=== PATIENT | male | born 1965 | race Caucasian/White ===

== ENCOUNTER 2022-02-10 09:03 | Outpatient (CLI) | payer MEDICAID, OTHER | END 2022-02-10 09:04 | disposition short-term general hospital (02) | LOC: EMS 09:03 | DX: R53.1 Weakness (principal); I95.1 Orthostatic hypotension; R19.5 Other fecal abnormalities; R46.4 Slowness and poor responsiveness | CPT/HCPCS: A0425; A0427; A0999 ==

== ENCOUNTER 2022-05-11 09:57 | Outpatient (CLI) | payer MEDICAID ==
[2022-05-11 15:20] LABS: HCT - HEMATOCRIT 32.2 % (42.0-52.0); HGB - HEMOGLOBIN 8.9 g/dL (14.0-18.0); MEAN CORPUSCULAR HEMOGLOBIN 21.2 pg (27.0-31.0); MEAN CORPUSCULAR HGB CONC 27.6 g/dL (32.0-36.0); MEAN CORPUSCULAR VOLUME 76.7 fL (80.0-94.0); MEAN PLATELET VOLUME 10.8 fL (7.4-11.4); RED BLOOD COUNT 4.2 10^6/uL (4.70-6.10); RED CELL DISTRIBUTION WIDTH 19.5 % (12.0-15.0); WHITE BLOOD COUNT 3.1 x10^3/uL (4.8-10.8)
[2022-05-11 15:21] LABS: ALBUMIN 3.3 g/dL (3.2-5.5); ALBUMIN/GLOBULIN RATIO 0.8 (1.0-2.2); BILIRUBIN,TOTAL 0.9 mg/dL (0.2-1.0); CREATININE 0.7 mg/dL (0.6-1.2); POTASSIUM 4.1 mmol/L (3.5-5.0); TOTAL PROTEIN 7.7 g/dL (6.7-8.2)
== END 2022-05-11 09:58 | disposition home or self-care (01) ==
LOC: LAB.S 09:57
PROVIDERS: ATTEND Family Medicine
DX: K70.30 Alcoholic cirrhosis of liver without ascites (principal)
CPT/HCPCS: 36415; 80053; 82728; 85027

== ENCOUNTER 2022-05-27 06:54 | Outpatient (CLI) | payer MEDICAID ==
--- NOTE | 2022-05-27 11:22 | Ultrasound Report ---
PROCEDURE: Abdomen Complete INDICATIONS: ALCOHOLIC CIRRHOSIS TECHNIQUE: Real-time scanning was performed of the abdominal and retroperitoneal organs, with image documentatio n. COMPARISON: None. FINDINGS: Liver: Liver is normal in size at 15.4 cm. Mild nodularity of the liver surface is consistent with c irrhosis. Hepatic echotexture is coarsened and mildly hyperechoic. Main portal vein measures 11 mm in diameter with hepatopetal flow. Gallbladder: The gallbladder appears normal without gallstones or gallbladder wall thickening. There is no pericholecystic fluid. Sonographic Cobb sign is negative. Biliary ducts: Intrahepatic bile ducts are non-dilated. Extrahepatic bile duct caliber measures 5.7 mm. Normal is 6-7 mm or less in diameter, or 10 mm or less post-cholecystectomy. Pancreas: Visualized portions of the pancreas are sonographically normal. Spleen: Spleen is enlarged, measuring 16 x 15.6 x 5.8 cm (1093 cc). Kidneys: Kidneys are normal in size and echotexture. Right kidney measures 11.5 cm long; left kidne y measures 11.5 cm long. No hydronephrosis or nephrolithiasis. No solid masses. Aorta: Visualized aorta is normal in caliber at less than 3 cm. Iliacs: Proximal common iliac arteries are normal in caliber at less than 2.5 cm. IVC: Intrahepatic inferior vena cava is patent. Miscellaneous: No free abdominal fluid. IMPRESSION: 1.Nodular liver surface is consistent with cirrhosis. No suspicious hepatic mass. Hepatopetal flow se en in the portal vein. 2.Moderate splenomegaly. Reviewed by: Kin Salcido MD on 05/27/2022 11:20 AM [facility] Approved by: Kin Salcido MD on 05/27/2022 11:20 AM [facility] Station ID: [id number]
== END 2022-05-27 06:55 | disposition home or self-care (01) ==
LOC: DI 06:54
PROVIDERS: ATTEND Internal Medicine Gastroenterology
DX: K70.30 Alcoholic cirrhosis of liver without ascites (principal); R16.1 Splenomegaly, not elsewhere classified

== ENCOUNTER 2023-01-17 12:47 | Outpatient (CLI) | payer OTHER | END 2023-01-17 23:59 | disposition critical access hospital (66) | LOC: EMS 12:47 | DX: K92.0 Hematemesis (principal); R19.7 Diarrhea, unspecified; R53.1 Weakness | CPT/HCPCS: A0425; A0427 ==

== ENCOUNTER 2023-01-17 13:25 | Emergency (ER) | payer MEDICAID, OTHER ==
[2023-01-17] MEDS ORDERED: OCTREOTIDE 500 MCG in SODIUM CHLORIDE 0.9% 100ML 95 ML IV STA (13:34)
[2023-01-17] MEDS ORDERED: OCTREOTIDE 100 MCG/ML VIAL IVP STA (13:34)
[2023-01-17] MEDS ORDERED: PANTOPRAZOLE 40 MG VIAL IVP STA (13:34)
[2023-01-17] MEDS ORDERED: cefTRIAXone 1 GM VIAL IVP STA (13:36)
[2023-01-17] MEDS ORDERED: SODIUM CHLORIDE 0.9% 1,000 ML IV STA ×2 (13:37)
--- NOTE | 2023-01-17 13:40 | ED Physician Documentation ---
History of Present Illness - Stated complaint Stated Complaint: N/V - History obtained from History obtained from: Patient, EMS - History of Present Illness Timing: How many days ago (2) Pain level max: 0 Pain level now: 0 - Additonal information Additional information: Patient is a 57-year-old male with a longstanding history of alcoholic cirrhosis. He presents to the emergency department with dark brown/black emesis for the past 2 days. Dark tarry stools as well. He was picked up by EMS in [place], his doctors are at [facility] in [place] including his GI doctor. [facility] last endoscopy was about a year ago. [facility] has a history of varices. EMS drove the patient here. Patient remained tachycardic on route with EMS, but did not have any active vomiting with them. No fevers. No chills. No rhinorrhea or congestion. Patient states he drinks "5-6 beers per day". Review of Systems Constitutional: denies: Fever, Chills Respiratory: denies: Cough GI: denies: Abdominal Pain : denies: Dysuria, Frequency, Hesitancy Skin: denies: Rash PD PAST MEDICAL HISTORY - Past Medical History Past Medical History: Yes GI: Esophageal varices, Other (alcoholic cirrhosis) - Past Surgical History Past Surgical History: No - Allergies Allergies/Adverse Reactions: Allergies Allergy/AdvReac Type Severity Reaction Status Date / Time No Known Drug Allergies Allergy Verified 01/17/23 13:39 - Living Situation Living Arrangement: reports: At home - Social History Does the pt drink ETOH?: Yes ETOH Use: Beer - Family History Family history: reports: Non contributory PD ED PE NORMAL - Vitals Vital signs reviewed: Yes - General General: Alert and oriented X 3, No acute distress, Other (pale appearing) - HEENT HEENT: PERRL, Moist mucous membranes - Neck Neck: Supple, no meningeal sign - Cardiac Cardiac: Other (tachycardic) - Respiratory Respiratory: No respiratory distress, Clear bilaterally - Abdomen Abdomen: Soft, Non tender, Non distended - Derm Derm: Warm and dry - Extremities Extremities: No edema, No calf tenderness / cord - Neuro Neuro: Alert and oriented X 3 - Psych Psych: Normal mood, Normal affect Results - Vitals Vitals: Vital Signs - 24 hr 01/17/23 13:35 Temperature 36.6 C Heart Rate 114 H Respiratory 18 Rate Blood Pressure 144/62 H O2 Saturation 98 Oxygen O2 Source Room air - Labs Labs: Laboratory Tests 01/17/23 01/17/23 01/17/23 13:45 13:45 13:45 WBC 5.4 RBC 2.94 L Hgb 9.4 L Hct 28.3 L MCV 96.3 H MCH 32.0 H MCHC 33.2 RDW 13.8 Plt Count 37 L MPV 10.3 Neut # (Auto) 4.3 Lymph # (Auto) 0.6 L Carver # (Auto) 0.5 Eos # (Auto) 0.0 Baso # (Auto) 0.0 Absolute Nucleated RBC 0.00 Nucleated RBC % 0.0 PT 20.4 H INR 1.9 H APTT 36.4 H Sodium 136 Potassium 3.8 Chloride 100 L Carbon Dioxide 31 Anion Gap 5.0 L BUN 22 H Creatinine 0.6 Estimated GFR (MDRD) 138 Glucose 142 H Calcium 8.5 Total Bilirubin 3.0 H AST 277 H ALT 98 H Alkaline Phosphatase 91 Total Protein 6.7 Albumin 3.1 L Globulin 3.6 Albumin/Globulin Ratio 0.9 L Lipase 58 Ethyl Alcohol < 10.0 PD Medical Decision Making - ED course Complexity details: reviewed results, re-evaluated patient, considered differential, d/w patient, d/w family ED course: Patient is a 57-year-old male with a history of alcoholic cirrhosis and esophageal varices. Has had black/bloody emesis x2 days. Tachycardic with EMS. He sees Dr. Urena at [facility] in [place]. His last endoscopy did not show any varices, but prior endoscopies have. I discussed the case with Dr. Das, general surgery here, she feels that given the history of his cirrhosis and varices that he should be transferred for higher level of care. At approximately 2 PM, we started trying to transfer the patient. Patient was given 1 g of Rocephin, Protonix, octreotide and started on octreotide drip. The transfer center at [facility] in [place] recommended ER to ER transfer. I spoke with Dr. Alicia Fatima, who graciously accepts in transfer. COBRA forms completed. Also spoke with phyllis Campos RN. Patient will be transported via [facility]. This document was made in part using voice recognition software. While efforts are made to proofread this document, sound alike and grammatical errors may occur. Departure - Departure Disposition: 02 Transfer Acute Care Hosp Clinical Impression: Upper GI bleed, Chronic anemia, Thrombocytopenia Alcoholic cirrhosis Qualifiers: Ascites presence: without ascites Qualified Code(s): K70.30 - Alcoholic cirrhosis of liver without ascites Condition: Serious
[2023-01-17 13:50] LABS: HCT - HEMATOCRIT 28.3 % (42.0-52.0); HGB - HEMOGLOBIN 9.4 g/dL (14.0-18.0); LYMPHOCYTES # (AUTO) 0.6 10^3/uL (1.5-3.5); LYMPHOCYTES % (AUTO) 10.1 %; MEAN CORPUSCULAR HGB CONC 33.2 g/dL (32.0-36.0); MEAN CORPUSCULAR VOLUME 96.3 fL (80.0-94.0); MEAN PLATELET VOLUME 10.3 fL (7.4-11.4); MONOCYTES # (AUTO) 0.5 10^3/uL (0.0-1.0); MONOCYTES % (AUTO) 9.9 %; NEUTROPHILS # (AUTO) 4.3 10^3/uL (1.5-6.6); NEUTROPHILS % (AUTO) 79.6 %; PLT - PLATELET COUNT 37 10^3/uL (130-450); RED BLOOD COUNT 2.94 10^6/uL (4.70-6.10); RED CELL DISTRIBUTION WIDTH 13.8 % (12.0-15.0); WHITE BLOOD COUNT 5.4 x10^3/uL (4.8-10.8)
[2023-01-17] MEDS ORDERED: OCTREOTIDE 500 MCG in SODIUM CHLORIDE 0.9% 100ML 99 ML IV ONE (14:00)
[2023-01-17] MEDS ORDERED: OCTREOTIDE 500 MCG in SODIUM CHLORIDE 0.9% 100ML 95 ML IV ONE (14:00)
[2023-01-17] MEDS ORDERED: ONDANSETRON 4 MG/2 ML VIAL IVP STA (14:06)
[2023-01-17 14:11] LABS: ALBUMIN 3.1 g/dL (3.2-5.5); ALBUMIN/GLOBULIN RATIO 0.9 (1.0-2.2); ALKALINE PHOSPHATASE 91 IU/L (42-121); ALT ALANINE AMINOTRANSFERASE 98 IU/L (10-60); AST ASPARTATE AMINOTRANSFERASE 277 IU/L (10-42); BUN - BLOOD UREA NITROGEN 22 mg/dL (6-20); CALCIUM 8.5 mg/dL (8.5-10.3); CARBON DIOXIDE - CO2 31 mmol/L (21-32); CHLORIDE 100 mmol/L (101-111); CREATININE 0.6 mg/dL (0.6-1.3); ETOH - ETHANOL < 10.0 mg/dL; GFR - MDRD 138 (>89); GLUCOSE 142 mg/dL (74-104); LIPASE 58 U/L (11-82); PARTIAL THROMBOPLASTIN TIME 36.4 secs (24.9-33.3); POTASSIUM 3.8 mmol/L (3.5-4.5); SODIUM 136 mmol/L (135-145); TOTAL PROTEIN 6.7 g/dL (6.4-8.9)
[2023-01-17 14:15] LABS: INR 1.9 (0.8-1.2); PT - PROTHROMBIN TIME 20.4 secs (9.9-12.6)
[2023-01-17 14:45] VITALS: BP 158/91; O2SAT 96
== END 2023-01-17 15:16 | disposition short-term general hospital (02) ==
LOC: EDUNIT# → ED 13:25
DX: K70.30 Alcoholic cirrhosis of liver without ascites (principal); D63.8 Anemia in other chronic diseases classified elsewhere; K92.2 Gastrointestinal hemorrhage, unspecified; D69.6 Thrombocytopenia, unspecified
CPT/HCPCS: 36415; 80053; 80320; 83690; 85025; 85610; 85730; 86850; 86900; 86901; 96374; 96375; 99284; 99285; J2354

== ENCOUNTER 2023-08-15 12:23 | Outpatient (CLI) | payer OTHER ==
[2023-08-15 14:30] LABS: HCT - HEMATOCRIT 44.8 % (42.0-52.0); MEAN CORPUSCULAR HEMOGLOBIN 31.3 pg (27.0-31.0); MEAN CORPUSCULAR HGB CONC 33.5 g/dL (32.0-36.0); MEAN CORPUSCULAR VOLUME 93.5 fL (80.0-94.0); MEAN PLATELET VOLUME 11.3 fL (7.4-11.4); RED BLOOD COUNT 4.79 10^6/uL (4.70-6.10); RED CELL DISTRIBUTION WIDTH 14.1 % (12.0-15.0); WHITE BLOOD COUNT 3.2 x10^3/uL (4.8-10.8)
[2023-08-15 16:05] LABS: MAGNESIUM 1.7 mg/dL (1.7-2.3)
[2023-08-15 16:11] LABS: ALBUMIN 3.8 g/dL (3.2-5.5); ALKALINE PHOSPHATASE 75 IU/L (42-121); ALT ALANINE AMINOTRANSFERASE 47 IU/L (10-60); AST ASPARTATE AMINOTRANSFERASE 67 IU/L (10-42); BILIRUBIN,TOTAL 1.7 mg/dL (0.2-1.0); BUN - BLOOD UREA NITROGEN 8 mg/dL (6-20); CALCIUM 9.7 mg/dL (8.5-10.3); CARBON DIOXIDE - CO2 30 mmol/L (21-32); CHLORIDE 106 mmol/L (101-111); CHOL/HDL RATIO 2.1 (<5.0); CHOLESTEROL 121 mg/dL; CREATININE 0.7 mg/dL (0.6-1.3); GFR - MDRD 115 (>89); GLUCOSE 109 mg/dL (74-104); HDL CHOLESTEROL 57 mg/dL; LDL CHOLESTEROL,CALCULATED 56 mg/dL; SODIUM 140 mmol/L (135-145); TOTAL PROTEIN 7.5 g/dL (6.4-8.9); TRIGLYCERIDES 40 mg/dL (48-352); URIC ACID 4.6 mg/dL (4.4-7.6); VLDL CHOLESTEROL 8 mg/dL
[2023-08-15 20:31] LABS: ESTIMATED AVERAGE GLUCOSE 82 mg/dL (70-100); HEMOGLOBIN A1c% 4.5 % (4.27-6.07)
== END 2023-08-15 12:24 | disposition home or self-care (01) ==
LOC: LAB.S 12:23
PROVIDERS: ATTEND Family Medicine
DX: I10 Essential (primary) hypertension (principal); K70.30 Alcoholic cirrhosis of liver without ascites; M10.00 Idiopathic gout, unspecified site; D64.9 Anemia, unspecified; E87.6 Hypokalemia
CPT/HCPCS: 36415; 80053; 80061; 83036; 83721; 83735; 84153; 84550; 85027

== ENCOUNTER 2023-11-10 08:00 | Outpatient (CLI) | payer OTHER ==
--- NOTE | 2023-11-10 15:56 | XRAY Report ---
PROCEDURE: Foot 3+V RT INDICATIONS: RIGHT FOOT CRUSHING INJURY TECHNIQUE: 3 views of the foot were acquired. COMPARISON: None. FINDINGS: Bones: Mildly displaced fracture along the lateral aspect of the calcaneus anteriorly. Possible mildl y displaced fracture along the anterior superior aspect of the talus. No suspicious bony lesions. Soft tissues: No tibiotalar joint effusion. Achilles tendon appears normal. IMPRESSION: Mildly displaced fracture along the lateral aspect of the calcaneus anteriorly. Possible mildly displ aced fracture along the anterior superior aspect of the talus. Reviewed by: Fredy Meyers MD on 11/10/2023 3:54 PM PDT Approved by: Fredy Meyers MD on 11/10/2023 3:54 PM PDT Station ID: [id number]
== END 2023-11-10 23:59 | disposition home or self-care (01) ==
LOC: DI.S 08:00
PROVIDERS: ATTEND Physician Assistant Medical
DX: S92.001A Unspecified fracture of right calcaneus, initial encounter for closed fracture (principal)

== ENCOUNTER 2023-11-22 16:20 | Outpatient (CLI) | payer OTHER ==
--- NOTE | 2023-11-23 16:30 | XRAY Report ---
Foot 3+V RT HISTORY: 58 years of age, INJURT OF RT FOOT TECHNIQUE: Foot 3+V RT COMPARISON: 11/10/2023. FINDINGS/IMPRESSION: Healing, nondisplaced fracture of the anterior aspect of the calcaneus, in unchanged alignment. Previ ously seen possible fracture of the anterior superior aspect of talus is not definitely visualized on this exam. Reviewed by: Patricia Pang MD on 11/23/2023 3:58 PM PDT Approved by: Patricia Pang MD on 11/23/2023 3:58 PM PDT Station ID: [id number]
== END 2023-11-22 16:21 | disposition home or self-care (01) ==
LOC: DI.S 16:20
PROVIDERS: ATTEND Orthopaedic Surgery
DX: S92.024D Nondisplaced fracture of anterior process of right calcaneus, subsequent encounter for fracture with routine healing (principal)

== ENCOUNTER 2023-12-19 08:00 | Outpatient (CLI) | payer OTHER ==
--- NOTE | 2023-12-19 17:33 | XRAY Report ---
PROCEDURE: Foot 3+V RT (Weight Bearing) INDICATIONS: CRUSHING INJURY RT FOOT TECHNIQUE: 3 views of the foot were acquired. COMPARISON: 11/22/2023 and 11/10/2023. FINDINGS: Bones: There is interval healing at patient's known anterior lateral calcaneal fracture site with mil dly increased sclerosis. No new fracture or dislocation. Osteoarthritic changes are noted throughout right foot joints more notably involving first MTP joint. No suspicious bony lesions. Soft tissues: No tibiotalar joint effusion. Achilles tendon appears normal. IMPRESSION: Interval healing at patient's known anterior lateral calcaneal fracture site. Stable right full align ment. No new fracture or dislocation. 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 Reviewed by: Rodríguez Tidwell MD on 12/19/2023 5:32 PM PDT Approved by: Rodríguez Tidwell MD on 12/19/2023 5:32 PM PDT Station ID: [id number]
== END 2023-12-19 23:59 | disposition home or self-care (01) ==
LOC: DI.WOS 08:00
PROVIDERS: ATTEND Orthopaedic Surgery
DX: S92.001D Unspecified fracture of right calcaneus, subsequent encounter for fracture with routine healing (principal)